=== PATIENT | female | born 1935 | race Caucasian/White ===

== ENCOUNTER 2017-03-06 13:45 | Emergency (ER) | payer MEDICARE, MEDICAID ==
[~2017-03-06] VITALS: Ht 160 cm; Wt 65.0 kg
[~2017-03-06 13:45] MED LIST: AMLO-511 PO; INSU3INS3 SQ; LISI-662 PO; PROM5SYR PO; SITA50 PO; TNFMISC
[2017-03-06 14:02] LABS: GLUCOSE,POINT OF CARE 138 MG/DL (70-110)
[2017-03-06] MEDS ORDERED: ACETAMINOPHEN 325 MG TABLET PO ONE (14:15)
[2017-03-06 15:28] VITALS: BP 144/62
== END 2017-03-06 15:42 | disposition home or self-care (01) ==
LOC: EMS 13:46
DX: M11.211 Other chondrocalcinosis, right shoulder (principal); J40 Bronchitis, not specified as acute or chronic; N39.3 Stress incontinence (female) (male); E11.9 Type 2 diabetes mellitus without complications; E78.00 Pure hypercholesterolemia, unspecified; I10 Essential (primary) hypertension; J45.909 Unspecified asthma, uncomplicated
CPT/HCPCS: 82962; 93005; 99284

== ENCOUNTER 2017-09-04 17:26 | Emergency (ER) | payer MEDICARE, MEDICAID ==
[~2017-09-04] VITALS: Ht 157.5 cm; Wt 59.1 kg
[~2017-09-04 17:26] MED LIST changes: -INSU3INS3 SQ
[2017-09-04] MEDS ORDERED: ALBUTEROL SULFATE 2.5 MG/0.5 ML NEB SOLUTION NEB ONE (20:15)
[2017-09-04] MEDS ORDERED: IPRATROPIUM BROMIDE 0.5 MG/2.5 ML NEB SOLUTION NEB ONE (20:15)
[2017-09-04 21:33] VITALS: BP 175/71
== END 2017-09-04 21:43 | disposition home or self-care (01) ==
LOC: EMS 17:28
DX: J40 Bronchitis, not specified as acute or chronic (principal); J45.909 Unspecified asthma, uncomplicated; E11.9 Type 2 diabetes mellitus without complications; E78.00 Pure hypercholesterolemia, unspecified; I10 Essential (primary) hypertension
CPT/HCPCS: 71046; 94640; 99284

== ENCOUNTER 2017-09-13 13:47 | Emergency (ER) | payer MEDICARE, MEDICAID ==
[~2017-09-13] VITALS: Ht 157.5 cm; Wt 60.9 kg
[~2017-09-13 13:47] MED LIST changes: -PROM5SYR PO; -TNFMISC
[2017-09-13] MEDS ORDERED: SITA100 PO (14:00)
[2017-09-13 14:02] LABS: GLUCOSE,POINT OF CARE 110 MG/DL (70-110)
[2017-09-13 16:48] LABS: APPEARANCE,URINE CLEAR (CLEAR); BILIRUBIN,URINE NEGATIVE (NEGATIVE); GLUCOSE, URINE (UA) NEGATIVE (NEGATIVE); KETONES,URINE NEGATIVE (NEGATIVE); LEUKOCYTE ESTERASE ,URINE NEGATIVE (NEGATIVE); NITRATE,URINE NEGATIVE (NEGATIVE); OCCULT BLOOD,URINE NEGATIVE (NEGATIVE); PH,URINE 6.5 (5.0-8.0); PROTEIN,URINE NEGATIVE (NEGATIVE)
[2017-09-13 16:50] VITALS: BP 146/72
[2017-09-13] MEDS ORDERED: PHENAZOPYRIDINE HCL 100 MG TABLET PO ONE (17:00)
== END 2017-09-13 17:32 | disposition home or self-care (01) ==
LOC: EMS 13:48
DX: R30.0 Dysuria (principal); J45.909 Unspecified asthma, uncomplicated; E11.9 Type 2 diabetes mellitus without complications; E78.00 Pure hypercholesterolemia, unspecified; I10 Essential (primary) hypertension; M19.90 Unspecified osteoarthritis, unspecified site
CPT/HCPCS: 82962; 99283

== ENCOUNTER 2018-07-25 18:21 | Emergency (ER) | payer MEDICARE, MEDICAID ==
[~2018-07-25] VITALS: Ht 152.4 cm; Wt 68.2 kg
[~2018-07-25 18:21] MED LIST changes: +SITA100 PO; -SITA50 PO
[2018-07-25] MEDS ORDERED: LOSA1TAB37 PO (18:45)
[2018-07-25] MEDS ORDERED: FERG325 PO (18:45)
[2018-07-25] MEDS ORDERED: BENZ-51 PO (18:45)
[2018-07-25 18:54] LABS: GLUCOSE,POINT OF CARE 125 MG/DL (70-110)
[2018-07-25] MEDS ORDERED: AZITHROMYCIN 250 MG TABLET PO ONE (22:30)
[2018-07-25] MEDS ORDERED: ALBUTEROL SULFATE HFA 90 MCG/PUFF 8 GM INHALER IH ONE (22:30)
[2018-07-25 23:37] VITALS: BP 114/68
== END 2018-07-25 23:52 | disposition home or self-care (01) ==
LOC: EMS 18:22
DX: R05 Cough (principal); R06.02 Shortness of breath; J45.909 Unspecified asthma, uncomplicated; E11.9 Type 2 diabetes mellitus without complications; E78.00 Pure hypercholesterolemia, unspecified; I10 Essential (primary) hypertension; M19.90 Unspecified osteoarthritis, unspecified site
CPT/HCPCS: 94640; J3535

== ENCOUNTER 2019-10-23 12:51 | Emergency (ER) | payer MEDICARE, MEDICAID ==
[~2019-10-23] VITALS: Ht 157.5 cm; Wt 55.9 kg
[~2019-10-23 12:51] MED LIST changes: -AMLO-511 PO; +AMLO5TAB9 PO; +BENZ-51 PO; +FERG325 PO; -LISI-662 PO; +LOSA1TAB37 PO; -SITA100 PO
[2019-10-23] MEDS ORDERED: ATOR20TA86 PO ×2 (13:25)
[2019-10-23] MEDS ORDERED: PHENAZOPYRIDINE HCL 100 MG TABLET PO ONE (15:00)
[2019-10-23] MEDS ORDERED: ACETAMINOPHEN 500 MG TABLET PO ONE (15:00)
[2019-10-23] MEDS ORDERED: ONDANSETRON HCL 4 MG/2 ML VIAL IVP ONE (15:00)
[2019-10-23] MEDS ORDERED: CEPHALEXIN MONOHYDRATE 500 MG CAPSULE PO ONE (15:00)
[2019-10-23] MEDS ORDERED: SODIUM CHLORIDE 0.9% 500 ML IV ONE (15:00)
[2019-10-23 15:19] LABS: APPEARANCE,URINE CLOUDY (CLEAR); BILIRUBIN,URINE NEGATIVE (NEGATIVE); GLUCOSE, URINE (UA) NEGATIVE (NEGATIVE); KETONES,URINE NEGATIVE (NEGATIVE); LEUKOCYTE ESTERASE ,URINE LARGE (NEGATIVE); NITRATE,URINE NEGATIVE (NEGATIVE); OCCULT BLOOD,URINE MODERATE (NEGATIVE); PROTEIN,URINE TRACE (NEGATIVE); UROBILINOGEN,URINE 0.2 mg/dL (<=1.0)
[2019-10-23 15:24] LABS: BASOPHILS % (AUTO) 0.7 % (0.0-2.0); EOSINOPHILS % (AUTO) 2.3 % (1.0-6.0); HEMATOCRIT 30.3 % (36-46); HEMOGLOBIN 9.9 g/dL (12.0-16.0); LYMPHOCYTES # (AUTO) 1.3 K/uL (1.0-4.8); LYMPHOCYTES % (AUTO) 20.4 % (22.0-44.0); MEAN CORPUSCULAR HEMOGLOBIN 29.1 pg (26.0-34.0); MEAN CORPUSCULAR HGB CONC 32.7 G/dL (31.0-37.0); MEAN CORPUSCULAR VOLUME 89 fL (80-100); MONOCYTES # (AUTO) 0.5 K/uL (0.1-1.0); MONOCYTES % (AUTO) 7.5 % (2.0-9.0); NEUTROPHILS # (AUTO) 4.3 K/uL (1.8-7.7); NEUTROPHILS % (AUTO) 69.1 % (40.0-70.0); PLATELET COUNT (AUTO) 164 K/uL (150-450); RED CELL DISTRIBUTION WIDTH 14.2 % (11.5-14.5)
[2019-10-23 15:36] LABS: CALCIUM, TOTAL 9.3 mg/dL (8.8-10.5); CREATININE 0.96 mg/dL (0.60-1.30); POTASSIUM 4.9 mmol/L (3.5-5.1)
[2019-10-23 15:41] LABS: ALBUMIN 3.6 g/dL (3.4-5.0); BILIRUBIN,TOTAL 0.2 mg/dL (0.1-1.0); TOTAL PROTEIN, SERUM 7.5 g/dL (6.4-8.2)
[2019-10-23 15:53] LABS: BACTERIA,URINE Many /HPF (None Seen); SQUAMOUS EPITHELIAL CELL,UR Rare /LPF (None Seen); WBC,URINE 51-100 /HPF (0-5)
[2019-10-23 16:58] VITALS: BP 148/64
== END 2019-10-23 17:09 | disposition home or self-care (01) ==
LOC: EMS 12:53
DX: E86.0 Dehydration (principal); N39.0 Urinary tract infection, site not specified; J45.909 Unspecified asthma, uncomplicated; E11.9 Type 2 diabetes mellitus without complications; E78.00 Pure hypercholesterolemia, unspecified; I10 Essential (primary) hypertension
CPT/HCPCS: 36415; 71045; 80053; 81001; 84484; 85025; 87077; 87086; 93005; 96374; 99285; J2405; J7030

== ENCOUNTER 2019-10-29 16:51 | Emergency (ER) | payer MEDICARE, MEDICAID ==
[~2019-10-29] VITALS: Ht 157.5 cm; Wt 56.0 kg
[~2019-10-29 16:51] MED LIST changes: -AMLO5TAB9 PO; +ATOR20TA86 PO; -BENZ-51 PO
[2019-10-29] MEDS ORDERED: CEPH500C2 PO (17:01)
[2019-10-29 17:34] LABS: GLUCOSE,POINT OF CARE 117 MG/DL (70-110)
[2019-10-29 19:04] LABS: BASOPHILS % (AUTO) 0.8 % (0.0-2.0); EOSINOPHILS % (AUTO) 1.2 % (1.0-6.0); HEMOGLOBIN 9.6 g/dL (12.0-16.0); LYMPHOCYTES # (AUTO) 1.2 K/uL (1.0-4.8); LYMPHOCYTES % (AUTO) 19.5 % (22.0-44.0); MEAN CORPUSCULAR HEMOGLOBIN 29.6 pg (26.0-34.0); MEAN CORPUSCULAR HGB CONC 33.2 G/dL (31.0-37.0); MEAN CORPUSCULAR VOLUME 89 fL (80-100); MONOCYTES # (AUTO) 0.4 K/uL (0.1-1.0); MONOCYTES % (AUTO) 7.2 % (2.0-9.0); NEUTROPHILS # (AUTO) 4.4 K/uL (1.8-7.7); NEUTROPHILS % (AUTO) 71.3 % (40.0-70.0); PLATELET COUNT (AUTO) 195 K/uL (150-450); RED BLOOD CELL COUNT(AUTO) 3.26 MIL/uL (4.00-5.20); RED CELL DISTRIBUTION WIDTH 14.2 % (11.5-14.5)
[2019-10-29 19:17] LABS: CALCIUM, TOTAL 8.8 mg/dL (8.8-10.5); CREATININE 1.06 mg/dL (0.60-1.30); POTASSIUM 4.3 mmol/L (3.5-5.1)
[2019-10-29 19:25] LABS: ALBUMIN 3.8 g/dL (3.4-5.0); BILIRUBIN,TOTAL 0.2 mg/dL (0.1-1.0); TOTAL PROTEIN, SERUM 7.8 g/dL (6.4-8.2)
[2019-10-29] MEDS ORDERED: ACETAMINOPHEN 325 MG TABLET PO ONE (20:30)
[2019-10-29 20:38] LABS: APPEARANCE,URINE CLOUDY (CLEAR); BILIRUBIN,URINE NEGATIVE (NEGATIVE); GLUCOSE, URINE (UA) NEGATIVE (NEGATIVE); KETONES,URINE NEGATIVE (NEGATIVE); LEUKOCYTE ESTERASE ,URINE TRACE (NEGATIVE); NITRATE,URINE NEGATIVE (NEGATIVE); OCCULT BLOOD,URINE NEGATIVE (NEGATIVE); PH,URINE 5.5 (5.0-8.0); PROTEIN,URINE NEGATIVE (NEGATIVE); UROBILINOGEN,URINE 0.2 mg/dL (<=1.0)
[2019-10-29 21:07] LABS: BACTERIA,URINE None Seen /HPF (None Seen); RBC,URINE None Seen /HPF (0-2); SQUAMOUS EPITHELIAL CELL,UR Few /LPF (None Seen); WBC,URINE 0-2 /HPF (0-5)
[2019-10-29 21:30] VITALS: BP 153/63
== END 2019-10-29 22:21 | disposition home or self-care (01) ==
LOC: EMS 16:51
DX: N39.0 Urinary tract infection, site not specified (principal); J45.909 Unspecified asthma, uncomplicated; E11.9 Type 2 diabetes mellitus without complications; E78.00 Pure hypercholesterolemia, unspecified; I10 Essential (primary) hypertension

== ENCOUNTER 2020-01-20 18:27 | Emergency (ER) | payer MEDICARE, MEDICAID ==
[~2020-01-20] VITALS: Ht 157.5 cm; Wt 57.7 kg
[~2020-01-20 18:27] MED LIST changes: +CEPH500C2 PO
[2020-01-20 19:05] LABS: BASOPHILS % (AUTO) 0.5 % (0.0-2.0); EOSINOPHILS % (AUTO) 3.3 % (1.0-6.0); HEMATOCRIT 28.4 % (36-46); HEMOGLOBIN 9.5 g/dL (12.0-16.0); LYMPHOCYTES # (AUTO) 0.9 K/uL (1.0-4.8); LYMPHOCYTES % (AUTO) 14.9 % (22.0-44.0); MEAN CORPUSCULAR HEMOGLOBIN 29.9 pg (26.0-34.0); MEAN CORPUSCULAR HGB CONC 33.6 G/dL (31.0-37.0); MEAN CORPUSCULAR VOLUME 89 fL (80-100); MONOCYTES # (AUTO) 0.4 K/uL (0.1-1.0); MONOCYTES % (AUTO) 6.6 % (2.0-9.0); NEUTROPHILS # (AUTO) 4.6 K/uL (1.8-7.7); NEUTROPHILS % (AUTO) 74.7 % (40.0-70.0); PLATELET COUNT (AUTO) 211 K/uL (150-450); RED BLOOD CELL COUNT(AUTO) 3.18 MIL/uL (4.00-5.20); RED CELL DISTRIBUTION WIDTH 14.2 % (11.5-14.5)
[2020-01-20 19:18] LABS: CALCIUM, TOTAL 8.8 mg/dL (8.8-10.5); CREATININE 1.01 mg/dL (0.60-1.30); POTASSIUM 4.1 mmol/L (3.5-5.1)
[2020-01-20 19:20] LABS: ALBUMIN 3.8 g/dL (3.4-5.0); BILIRUBIN,TOTAL 0.2 mg/dL (0.1-1.0); TOTAL PROTEIN, SERUM 7.9 g/dL (6.4-8.2)
[2020-01-20 22:13] LABS: APPEARANCE,URINE CLOUDY (CLEAR); BILIRUBIN,URINE NEGATIVE (NEGATIVE); GLUCOSE, URINE (UA) NEGATIVE (NEGATIVE); KETONES,URINE NEGATIVE (NEGATIVE); LEUKOCYTE ESTERASE ,URINE LARGE (NEGATIVE); OCCULT BLOOD,URINE MODERATE (NEGATIVE); PROTEIN,URINE NEGATIVE (NEGATIVE); UROBILINOGEN,URINE 0.2 mg/dL (<=1.0)
[2020-01-20 22:21] LABS: BACTERIA,URINE Many /HPF (None Seen); NITRATE,URINE POSITIVE (NEGATIVE); SQUAMOUS EPITHELIAL CELL,UR Few /LPF (None Seen); WBC,URINE 51-100 /HPF (0-5)
[2020-01-20] MEDS ORDERED: CEPHALEXIN MONOHYDRATE 500 MG CAPSULE PO ONE (23:00)
[2020-01-20 23:10] VITALS: BP 123/74
== END 2020-01-20 23:40 | disposition home or self-care (01) ==
LOC: EMS 18:28
DX: N39.0 Urinary tract infection, site not specified (principal)
CPT/HCPCS: 87086

== ENCOUNTER 2020-01-27 15:11 | Emergency (ER) | payer MEDICARE, MEDICAID ==
[~2020-01-27] VITALS: Ht 157.5 cm; Wt 61.8 kg
[~2020-01-27 15:11] MED LIST changes: -CEPH500C2 PO
[2020-01-27] MEDS ORDERED: CEPH-582 PO (15:19)
[2020-01-27] MEDS ORDERED: AMLO10TA7 PO (15:19)
[2020-01-27 16:00] LABS: GLUCOMETER DEV NAME(LOC) AHU.; GLUCOSE,POINT OF CARE 110 MG/DL (70-110)
[2020-01-27] MEDS ORDERED: ACETAMINOPHEN 325 MG TABLET PO ONE (16:00)
[2020-01-27 16:44] LABS: BASOPHILS % (AUTO) 0.6 % (0.0-2.0); EOSINOPHILS % (AUTO) 1.4 % (1.0-6.0); HEMATOCRIT 28.4 % (36-46); HEMOGLOBIN 9.2 g/dL (12.0-16.0); LYMPHOCYTES # (AUTO) 0.9 K/uL (1.0-4.8); MEAN CORPUSCULAR HEMOGLOBIN 28.8 pg (26.0-34.0); MEAN CORPUSCULAR HGB CONC 32.3 G/dL (31.0-37.0); MEAN CORPUSCULAR VOLUME 89 fL (80-100); MONOCYTES # (AUTO) 0.5 K/uL (0.1-1.0); NEUTROPHILS # (AUTO) 4.9 K/uL (1.8-7.7); PLATELET COUNT (AUTO) 219 K/uL (150-450); RED BLOOD CELL COUNT(AUTO) 3.19 MIL/uL (4.00-5.20); RED CELL DISTRIBUTION WIDTH 14.3 % (11.5-14.5)
[2020-01-27 16:55] LABS: ANION GAP 10 mmol/L (8-16); CALCIUM, TOTAL 8.8 mg/dL (8.8-10.5); CARBON DIOXIDE 25 mmol/L (22-29); CHLORIDE 105 mmol/L (98-107); CREATININE 0.61 mg/dL (0.60-1.30); GLUCOSE,RANDOM 96 mg/dL (70-110); POTASSIUM 3.9 mmol/L (3.5-5.1); SODIUM SERUM 140 mmol/L (136-145); UREA NITROGEN, BLOOD 25 mg/dL (7-18)
[2020-01-27 17:01] LABS: GLOMERULAR FILTR. RATE CALC > 60 mL/min (>60)
[2020-01-27 19:58] LABS: APPEARANCE,URINE CLEAR (CLEAR); BILIRUBIN,URINE NEGATIVE (NEGATIVE); GLUCOSE, URINE (UA) NEGATIVE (NEGATIVE); KETONES,URINE NEGATIVE (NEGATIVE); LEUKOCYTE ESTERASE ,URINE NEGATIVE (NEGATIVE); NITRATE,URINE NEGATIVE (NEGATIVE); OCCULT BLOOD,URINE NEGATIVE (NEGATIVE); PH,URINE 5.5 (5.0-8.0); PROTEIN,URINE NEGATIVE (NEGATIVE); UROBILINOGEN,URINE 0.2 mg/dL (<=1.0)
[2020-01-27 20:14] VITALS: BP 159/84
[2020-01-27 20:14] LABS: BACTERIA,URINE None Seen /HPF (None Seen); RBC,URINE None Seen /HPF (0-2); WBC,URINE 0-2 /HPF (0-5)
[2020-01-27 20:15] LABS: SQUAMOUS EPITHELIAL CELL,UR Rare /LPF (None Seen)
== END 2020-01-27 20:49 | disposition home or self-care (01) ==
LOC: EMS 15:12
DX: Z03.818 Encounter for observation for suspected exposure to other biological agents ruled out (principal); R10.9 Unspecified abdominal pain; M54.6 Pain in thoracic spine; I10 Essential (primary) hypertension; E78.00 Pure hypercholesterolemia, unspecified; D64.9 Anemia, unspecified; Z79.899 Other long term (current) drug therapy

== ENCOUNTER 2020-03-22 16:44 | Emergency (ER) | payer MEDICARE, MEDICAID ==
[~2020-03-22] VITALS: Ht 157.5 cm; Wt 63.6 kg
[~2020-03-22 16:44] MED LIST changes: +AMLO-258 PO; +CEPH-582 PO
[2020-03-22 17:38] LABS: BASOPHILS % (AUTO) 0.7 % (0.0-2.0); EOSINOPHILS % (AUTO) 1.6 % (1.0-6.0); HEMATOCRIT 28.4 % (36-46); HEMOGLOBIN 9.4 g/dL (12.0-16.0); LYMPHOCYTES % (AUTO) 18.4 % (22.0-44.0); MEAN CORPUSCULAR HEMOGLOBIN 29.2 pg (26.0-34.0); MEAN CORPUSCULAR HGB CONC 33.2 G/dL (31.0-37.0); MEAN CORPUSCULAR VOLUME 88 fL (80-100); MONOCYTES # (AUTO) 0.4 K/uL (0.1-1.0); NEUTROPHILS # (AUTO) 3.8 K/uL (1.8-7.7); NEUTROPHILS % (AUTO) 72.3 % (40.0-70.0); PLATELET COUNT (AUTO) 202 K/uL (150-450); RED BLOOD CELL COUNT(AUTO) 3.22 MIL/uL (4.00-5.20); RED CELL DISTRIBUTION WIDTH 14.5 % (11.5-14.5)
[2020-03-22 17:49] LABS: CALCIUM, TOTAL 9.3 mg/dL (8.8-10.5); CREATININE 0.92 mg/dL (0.60-1.30); POTASSIUM 4.1 mmol/L (3.5-5.1)
[2020-03-22 17:54] LABS: ALBUMIN 3.6 g/dL (3.4-5.0); BILIRUBIN,TOTAL 0.1 mg/dL (0.1-1.0); TOTAL PROTEIN, SERUM 7.8 g/dL (6.4-8.2)
[2020-03-22 18:11] LABS: INFLUENZA TYPE A NEGATIVE FOR TYPE A (NEGATIVE); INFLUENZA TYPE B NEGATIVE FOR TYPE B (NEGATIVE)
[2020-03-22 18:53] VITALS: BP 161/7
[2020-03-22 19:04] LABS: APPEARANCE,URINE CLOUDY (CLEAR); BILIRUBIN,URINE NEGATIVE (NEGATIVE); GLUCOSE, URINE (UA) NEGATIVE (NEGATIVE); KETONES,URINE NEGATIVE (NEGATIVE); LEUKOCYTE ESTERASE ,URINE LARGE (NEGATIVE); OCCULT BLOOD,URINE SMALL (NEGATIVE); PROTEIN,URINE TRACE (NEGATIVE); UROBILINOGEN,URINE 0.2 mg/dL (<=1.0)
[2020-03-22 19:08] LABS: BACTERIA,URINE Many /HPF (None Seen); NITRATE,URINE POSITIVE (NEGATIVE); SQUAMOUS EPITHELIAL CELL,UR Few /LPF (None Seen); WBC,URINE 51-100 /HPF (0-5)
[2020-03-22] MEDS ORDERED: ACETAMINOPHEN 500 MG TABLET PO ONE (19:15)
[2020-03-22] MEDS ORDERED: PHENAZOPYRIDINE HCL 100 MG TABLET PO ONE (19:15)
[2020-03-22] MEDS ORDERED: CEPHALEXIN MONOHYDRATE 500 MG CAPSULE PO ONE (19:15)
== END 2020-03-22 19:28 | disposition home or self-care (01) ==
LOC: EMS 16:53
DX: Z03.818 Encounter for observation for suspected exposure to other biological agents ruled out (principal); N39.0 Urinary tract infection, site not specified; I10 Essential (primary) hypertension; E78.00 Pure hypercholesterolemia, unspecified; E11.9 Type 2 diabetes mellitus without complications; J40 Bronchitis, not specified as acute or chronic; Z79.899 Other long term (current) drug therapy
CPT/HCPCS: 36415; 80053; 81001; 82962; 84484; 85025; 87077; 87086; 87804; 99284; U0003

== ENCOUNTER 2020-08-04 17:12 | Emergency (ER) | payer MEDICARE, MEDICAID ==
[~2020-08-04] VITALS: Ht 149.9 cm; Wt 54.5 kg
[2020-08-04] MEDS ORDERED: ACETAMINOPHEN 325 MG TABLET PO ONE (18:15)
[2020-08-04 18:52] LABS: BASOPHILS % (AUTO) 0.6 % (0.0-2.0); EOSINOPHILS % (AUTO) 0.6 % (1.0-6.0); HEMATOCRIT 28.9 % (36-46); HEMOGLOBIN 9.5 g/dL (12.0-16.0); LYMPHOCYTES % (AUTO) 14.7 % (22.0-44.0); MEAN CORPUSCULAR HEMOGLOBIN 29.6 pg (26.0-34.0); MEAN CORPUSCULAR HGB CONC 32.8 G/dL (31.0-37.0); MEAN CORPUSCULAR VOLUME 90 fL (80-100); MONOCYTES # (AUTO) 0.4 K/uL (0.1-1.0); MONOCYTES % (AUTO) 5.7 % (2.0-9.0); NEUTROPHILS # (AUTO) 5.6 K/uL (1.8-7.7); NEUTROPHILS % (AUTO) 78.4 % (40.0-70.0); PLATELET COUNT (AUTO) 211 K/uL (150-450); RED CELL DISTRIBUTION WIDTH 13.6 % (11.5-14.5)
[2020-08-04 19:00] LABS: CALCIUM, TOTAL 9.1 mg/dL (8.8-10.5); CREATININE 1.18 mg/dL (0.60-1.30); POTASSIUM 4.3 mmol/L (3.5-5.1)
[2020-08-04 19:01] LABS: PROTHROMBIN TIME 10.9 SEC (9.4-11.6)
[2020-08-04 19:06] LABS: ALBUMIN 3.7 g/dL (3.4-5.0); BILIRUBIN,TOTAL 0.3 mg/dL (0.1-1.0); TOTAL PROTEIN, SERUM 8.3 g/dL (6.4-8.2)
[2020-08-04 20:06] LABS: ERYTHROCYTE SEDIMENTATION RATE 114 MM/HR (0-20)
[2020-08-04 20:12] VITALS: BP 127/86
== END 2020-08-04 20:48 | disposition home or self-care (01) ==
LOC: EMS 17:13
DX: M26.622 Arthralgia of left temporomandibular joint (principal); J45.909 Unspecified asthma, uncomplicated; E11.9 Type 2 diabetes mellitus without complications; E78.00 Pure hypercholesterolemia, unspecified; I10 Essential (primary) hypertension; Z79.899 Other long term (current) drug therapy
CPT/HCPCS: 70450; 85651

== ENCOUNTER 2020-12-21 16:33 | Emergency (ER) | payer MEDICARE, MEDICAID ==
[~2020-12-21] VITALS: Ht 157.5 cm; Wt 66.8 kg
[~2020-12-21 16:33] MED LIST changes: -CEPH-582 PO; +DOCU-275 PO
[2020-12-21 16:41] VITALS: BP 144/70
[2020-12-21] MEDS ORDERED: ACETAMINOPHEN 325 MG TABLET PO ONE (18:15)
== END 2020-12-21 19:21 | disposition home or self-care (01) ==
LOC: EMS 16:34
DX: M25.511 Pain in right shoulder (principal); E11.9 Type 2 diabetes mellitus without complications; E78.00 Pure hypercholesterolemia, unspecified; I10 Essential (primary) hypertension
CPT/HCPCS: 82962; 99282

== ENCOUNTER 2022-05-15 18:23 | Emergency (ER) | payer MEDICARE, MEDICAID ==
[~2022-05-15] VITALS: Ht 157.5 cm; Wt 55.9 kg
[~2022-05-15 18:23] MED LIST changes: -DOCU-275 PO; +DOCU-385 PO
[2022-05-15 18:51] LABS: GLUCOSE,POINT OF CARE 164 MG/DL (70-110)
[2022-05-15 21:57] LABS: BASOPHILS % (AUTO) 0.5 % (0.0-2.0); EOSINOPHILS % (AUTO) 1.7 % (1.0-6.0); HEMATOCRIT 30.2 % (36-46); HEMOGLOBIN 9.6 g/dL (12.0-16.0); LYMPHOCYTES # (AUTO) 1.3 K/uL (1.0-4.8); MEAN CORPUSCULAR HEMOGLOBIN 27.8 pg (26.0-34.0); MEAN CORPUSCULAR VOLUME 87 fL (80-100); MONOCYTES # (AUTO) 0.4 K/uL (0.1-1.0); MONOCYTES % (AUTO) 7.7 % (2.0-9.0); NEUTROPHILS # (AUTO) 3.8 K/uL (1.8-7.7); NEUTROPHILS % (AUTO) 67.1 % (40.0-70.0); PLATELET COUNT (AUTO) 207 K/uL (150-450); RED BLOOD CELL COUNT(AUTO) 3.47 MIL/uL (4.00-5.20); RED CELL DISTRIBUTION WIDTH 16.4 % (11.5-14.5)
[2022-05-15 22:05] LABS: CREATININE 0.97 mg/dL (0.60-1.30); POTASSIUM 3.7 mmol/L (3.5-5.1)
[2022-05-15 22:06] LABS: CALCIUM, TOTAL 8.7 mg/dL (8.8-10.5)
[2022-05-15 22:12] LABS: ALBUMIN 3.5 g/dL (3.4-5.0); BILIRUBIN,TOTAL 0.2 mg/dL (0.1-1.0); TOTAL PROTEIN, SERUM 7.6 g/dL (6.4-8.2)
[2022-05-15 22:37] LABS: PROTHROMBIN TIME 10.3 SEC (9.4-11.6)
[2022-05-15 23:02] LABS: COVID AG,FIA SOURCE NASAL SWAB
[2022-05-15 23:29] VITALS: BP 151/99
== END 2022-05-16 00:40 | disposition home or self-care (01) ==
LOC: EMS 18:23
DX: J06.9 Acute upper respiratory infection, unspecified (principal); M19.90 Unspecified osteoarthritis, unspecified site; J45.909 Unspecified asthma, uncomplicated; E11.9 Type 2 diabetes mellitus without complications; E78.00 Pure hypercholesterolemia, unspecified; I10 Essential (primary) hypertension; Z86.2 Personal history of diseases of the blood and blood-forming organs and certain disorders involving the immune mechanism; Z87.09 Personal history of other diseases of the respiratory system; Z20.822 Contact with and (suspected) exposure to COVID-19
CPT/HCPCS: 71045; 80053; 82962; 83880; 84484; 85025; 85610; 85730; 93005; 99285; 36415-L1; 36415-TC